=== PATIENT | male | born 1990 | race African-American/Black ===

== ENCOUNTER 2016-10-21 04:01 | Emergency (ER) | payer MEDICAID ==
[2016-10-21 04:32] LABS: APPEARANCE CLEAR (CLEAR); BILIRUBIN NEGATIVE (NEGATIVE); COLOR YELLOW (YELLOW); GLUCOSE NEGATIVE (NEGATIVE); KETONE NEGATIVE (NEGATIVE); LEUKOCYTE ESTERASE TRACE (NEGATIVE); NITRITE NEGATIVE (NEGATIVE); PH 6.5 (5.0-6.0); PROTEIN NEGATIVE (NEGATIVE); SPECIFIC GRAVITY 1.015 (1.005-1.020); UROBILINOGEN NORMAL (NORMAL)
[2016-10-21 04:38] LABS: WHITE CELLS - URINE 0-5 /hpf (0-5)
[2016-10-21 04:39] LABS: BACTERIA FEW /hpf (NONE SEEN); EPITHELIAL CELLS 0-5 /hpf (0-5); HYALINE CAST RARE /lpf (NONE SEEN); RED CELLS - URINE RARE /hpf (0-5)
== END 2016-10-21 05:33 | disposition home or self-care (01) ==
LOC: D.ER 04:01
PROVIDERS: Emergency Medicine
DX: R30.0 Dysuria (principal); F17.200 Nicotine dependence, unspecified, uncomplicated

== ENCOUNTER 2016-12-23 00:14 | Emergency (ER) | payer SELFPAY | END 2016-12-23 01:04 | disposition home or self-care (01) | LOC: D.ER 00:14 | DX: L73.9 Follicular disorder, unspecified (principal); J45.909 Unspecified asthma, uncomplicated; K58.9 Irritable bowel syndrome, unspecified; F17.200 Nicotine dependence, unspecified, uncomplicated ==

== ENCOUNTER 2017-07-05 15:11 | Emergency (ER) | payer MEDICAID | END 2017-07-05 16:38 | disposition left against medical advice (07) | LOC: D.ER 15:11 | DX: R05 Cough (principal) ==

== ENCOUNTER 2017-10-16 07:21 | Emergency (ER) | payer MEDICAID ==
[2017-10-16 08:03] LABS: APPEARANCE CLEAR (CLEAR); BILIRUBIN NEGATIVE (NEGATIVE); COLOR YELLOW (YELLOW); GLUCOSE NEGATIVE (NEGATIVE); KETONE NEGATIVE (NEGATIVE); NITRITE NEGATIVE (NEGATIVE); PROTEIN NEGATIVE (NEGATIVE); UROBILINOGEN NORMAL (NORMAL)
[2017-10-16 08:04] LABS: BACTERIA FEW /hpf (NONE SEEN); EPITHELIAL CELLS 0-5 /hpf (0-5); RED CELLS - URINE 0-5 /hpf (0-5)
== END 2017-10-16 10:23 | disposition home or self-care (01) ==
LOC: D.ER 07:21
PROVIDERS: Emergency Medicine
DX: N39.0 Urinary tract infection, site not specified (principal); F17.200 Nicotine dependence, unspecified, uncomplicated

== ENCOUNTER 2017-12-11 20:50 | Emergency (ER) | payer MEDICAID ==
[2017-12-11 22:08] LABS: BASOPHILS 0.2 % (0-2); EOSINOPHILS 2.3 % (0-7); HEMATOCRIT 41.3 % (42.0-54.0); HEMOGLOBIN 14.7 g/dL (13.5-17.5); IMMATURE GRANULOCYTES 0.2 % (0-5); MCH 33.1 pg (26.0-34.0); MCHC 35.6 g/dL (31.0-37.0); MEAN PLATELET VOLUME 9.3 fL (7.4-10.4); MONOCYTES 4.5 % (2-11); NEUTROPHILS 61.8 % (40-80); RBC 4.44 10x6/uL (4.20-6.10); RDW 11.9 % (11.5-14.5); WBC 9.1 10x3/uL (4.8-10.8)
[2017-12-11 22:09] LABS: PLATELET COUNT 232 10x3/uL (130-400)
[2017-12-11 22:11] LABS: APPEARANCE CLEAR (CLEAR); BILIRUBIN NEGATIVE (NEGATIVE); COLOR STRAW (YELLOW); GLUCOSE NEGATIVE (NEGATIVE); KETONE NEGATIVE (NEGATIVE); NITRITE NEGATIVE (NEGATIVE); PROTEIN NEGATIVE (NEGATIVE); SPECIFIC GRAVITY 1.005 (1.005-1.020); UROBILINOGEN NORMAL (NORMAL)
[2017-12-11 22:24] LABS: ALBUMIN 4.4 g/dL (3.4-5.0); ALKALINE PHOSPHATASE 57 U/L (46-116); ALT (SGPT) 39 U/L (10-68); BILIRUBIN - TOTAL 0.45 mg/dL (0.2-1.3); CALC OSMOLALITY 278 mosm/kg (275-300); CALCIUM 9.9 mg/dL (8.5-10.1); CARBON DIOXIDE 27.3 mmol/L (21.0-32.0); CHLORIDE - SERUM 103 mmol/L (98-107); CREATININE - SERUM 1.2 mg/dL (0.6-1.3); GLUCOSE 108 mg/dL (74-106); PROTEIN - SERUM 8.2 g/dL (6.4-8.2); SODIUM 139 mmol/L (136-145); UREA NITROGEN 12 mg/dL (7-18); eGFR NON AFRICAN AMERICAN 78 mL/min (90-120)
[2017-12-11 22:27] LABS: TROPONIN-I < 0.017 ng/mL (0.000-0.060)
== END 2017-12-11 23:01 | disposition home or self-care (01) ==
LOC: D.ER 20:50
PROVIDERS: Family Medicine
DX: J01.90 Acute sinusitis, unspecified (principal); J20.9 Acute bronchitis, unspecified; J45.909 Unspecified asthma, uncomplicated

== ENCOUNTER 2017-12-28 23:30 | Emergency (ER) | payer MEDICAID ==
[2017-12-29 00:51] LABS: BASOPHILS 0.1 % (0-2); EOSINOPHILS 0.7 % (0-7); HEMATOCRIT 38.8 % (42.0-54.0); HEMOGLOBIN 13.5 g/dL (13.5-17.5); IMMATURE GRANULOCYTES 0.3 % (0-5); LYMPHOCYTES 15.8 % (15-50); MCHC 34.8 g/dL (31.0-37.0); MCV 94.9 fL (80.0-100.0); MEAN PLATELET VOLUME 9.3 fL (7.4-10.4); MONOCYTES 5.7 % (2-11); NEUTROPHILS 77.4 % (40-80); RBC 4.09 10x6/uL (4.20-6.10); WBC 14.8 10x3/uL (4.8-10.8)
[2017-12-29 00:55] LABS: PLATELET COUNT 171 10x3/uL (130-400)
== END 2017-12-29 01:10 | disposition home or self-care (01) ==
LOC: D.ER 23:30
PROVIDERS: Emergency Medicine
DX: J20.9 Acute bronchitis, unspecified (principal); F17.200 Nicotine dependence, unspecified, uncomplicated

== ENCOUNTER 2019-02-02 23:30 | Emergency (ER) | payer SELFPAY ==
[~2019-02-02] VITALS: Ht 185.4 cm; Wt 90.0 kg
[2019-02-02 23:58] VITALS: Ht 185.4 cm; Wt 90.0 kg
[2019-02-03 00:44] LABS: APPEARANCE CLEAR (CLEAR); BILIRUBIN NEGATIVE (NEGATIVE); COLOR YELLOW (YELLOW); GLUCOSE NEGATIVE (NEGATIVE); KETONE NEGATIVE (NEGATIVE); NITRITE NEGATIVE (NEGATIVE); PROTEIN NEGATIVE (NEGATIVE); UROBILINOGEN NORMAL (NORMAL)
[2019-02-03] MEDS ORDERED: TORADOL10 MG PO (02:14)
[2019-02-03 02:40] VITALS: BP 128/85
== END 2019-02-03 02:40 | disposition home or self-care (01) ==
LOC: D.ER 23:30
PROVIDERS: Emergency Medicine
DX: M54.5 Low back pain (principal)

== ENCOUNTER 2019-06-21 02:35 | Emergency (ER) | payer MEDICAID ==
[~2019-06-21] VITALS: Ht 185.4 cm; Wt 86.4 kg
[~2019-06-21 02:35] MED LIST: TORADOL10 MG PO
[2019-06-21 02:38] VITALS: Ht 185.4 cm; Wt 86.4 kg
[2019-06-21] MEDS ORDERED: VIGAMOX3 ML EACH EYE (03:04)
[2019-06-21 03:15] VITALS: BP 119/72
== END 2019-06-21 03:15 | disposition home or self-care (01) ==
LOC: D.ER 02:35
DX: H57.89 Other specified disorders of eye and adnexa (principal)